=== PATIENT | male | born 1940 | race Caucasian/White ===

== ENCOUNTER 2019-06-18 19:46 | Inpatient (IN) | payer MEDICARE ==
[2019-06-18 20:40] LABS: #Basophils 0.1 thou/uL (0.0-0.2); #Eosinphils 0.1 thou/uL (0.0-0.7); #Monocytes 0.7 thou/uL (0.11-0.59); #Neutrophils 5.7 thou/uL (1.40-6.50); %Basophils 0.7 % (0.0-1.0); %Eosinophils 1.5 % (0.0-10.0); %Lymphocytes 23.7 % (21.0-51.0); %Monocytes 8.2 % (0.0-10.0); %Neutrophils 65.9 % (42.0-75.0); Hemoglobin 8.5 g/dL (14.0-18.0); Mean Corpuscular HGB CONC 33.2 g/dL (32.0-36.0); Mean Corpuscular Hemoglobin 29.2 pg (27.0-31.0); Mean Corpuscular Volume 88.1 fL (78.0-98.0); Mean Platelet Volume 8.3 fL (7.4-10.4); Platelet Count 218 thou/uL (130-400); RBC Distribution Width 14.2 % (11.5-14.5); Red Blood Cell (RBC) Count 2.89 mill/uL (4.70-6.10); White Blood Cell (WBC) Count 8.6 thou/uL (4.8-10.8)
[2019-06-18 21:00] LABS: ALT (SGPT) 17 U/L (8-55); AST (SGOT) 19 U/L (5-34); Albumin 3.6 g/dL (3.4-4.8); Alkaline Phosphatase 52 U/L (40-110); Anion Gap 12 mmol/L (10-20); BUN (Urea Nitrogen) 28 mg/dL (8.4-25.7); Bilirubin, Total 0.2 mg/dL (0.2-1.2); Calc. Creatinine Clearance 0 mL/min (70-130); Calcium 8.8 mg/dL (7.8-10.44); Carbon Dioxide 27 mmol/L (23-31); Chloride 103 mmol/L (98-107); Estimated GFR-MDRD 46; Globulin 2.6 g/dL (2.4-3.5); Glucose 116 mg/dL (83-110); Potassium 3.6 mmol/L (3.5-5.1); Protein, Total 6.2 g/dL (5.8-8.1); Sodium 138 mmol/L (136-145)
[2019-06-19] MEDS ORDERED: Ondansetron PF 4 MG/2 ML Vial IVP PRN ×2 (02:46→08:02)
[2019-06-19] MEDS ORDERED: Ondansetron ODT 4 MG TAB SL PRN (02:46)
[2019-06-19 02:51] VITALS: BMI 24.9
--- NOTE | 2019-06-19 08:01 | CT ---
PRELIMINARY REPORT/[facility]/EMERGENCY AFTER HOURS PROCEDURE EXAM: CT Abdomen and Pelvis with Intravenous Contrast CLINICAL HISTORY: MTony presents to the ED with c/o bloody stools, describes as dark x 3 days. Pt repor ts intermittent lightheadedness and feeling "unsteady on his feet." Pt denies abdominal pain. Pt repo rts nausea but denies vomiting and diarrhea. Pt reports she has been taking 650 mg Tylenol for arthri tis pain. Pt reports that he has had colonoscopy in the past but denies hx of diverticula disease. Pt reports hx of TIA but denies hx of TN or stents. Pt reports he drinks two whiskey and cokes every ni ght. Surgical history of prostatectomy. TECHNIQUE: Axial computed tomography images of the abdomen and pelvis with intravenous contrast. Cor onal and sagittal reformatted images are provided. Exam DLP is 670.9. CONTRAST: With; 70ML ISOVUE 370 intravenous. COMPARISON: None provided. FINDINGS: LUNG BASES: No basilar airspace consolidation or pleural effusion. LIVER: Unremarkable. GALLBLADDER AND BILE DUCTS: Unremarkable. No calcified stone. No ductal dilation. PANCREAS: Unremarkable. SPLEEN: Unremarkable. ADRENAL GLANDS: Unremarkable. KIDNEYS, URETERS, AND BLADDER: Unremarkable. No hydronephrosis or nephrolithiasis. No ureteral or luis dder calculi. STOMACH AND BOWEL: No obstruction. No wall thickening. No CT evidence of colitis or acute diverticuli tis. APPENDIX: No CT evidence for appendicitis. PERITONEUM: No intra-abdominal free air, free fluid or abscess. LYMPH NODES: No lymphadenopathy. REPRODUCTIVE: Status post prostatectomy. No pelvic mass or free fluid. VASCULATURE: Atherosclerosis of the aorta without aneurysm. BONES: No acute fractures or worrisome osseous lesions. Multilevel degenerative changes of the spine sacral iliac joints. ABDOMINAL WALL AND SOFT TISSUES: Unremarkable. IMPRESSION: No acute intra-abdominal or pelvic abnormality. ELECTRONICALLY SIGNED BY: Chu Muller M.D. Jun 19, 2019 1:12:15 AM REAL ESTATE CLOSING COORDINATOR FINAL REPORT EMERGENT AFTER HOURS CT ABDOMEN AND PELVIS WITH CONTRAST: FINDINGS/IMPRESSION: I agree with the findings and impression given in the preliminary report per [facility] physici an. No evidence of acute intraabdominal/pelvic abnormality.
[2019-06-19] MEDS ORDERED: Acetaminophen 325 MG TAB PO PRN (08:02)
[2019-06-19] MEDS ORDERED: Ondansetron ODT 4 MG TAB PO PRN (08:02)
[2019-06-19] MEDS ORDERED: hydrALAZINE 20 MG/ML VIAL SLOW IVP PRN (08:02)
[2019-06-19] MEDS: Sodium Chloride 0.9% 1,000 ML IV SCH ×2 (08:42→20:26)
[2019-06-19] MEDS: Pantoprazole 40 MG VIAL IVP SCH ×2 (08:45→20:26)
--- NOTE | 2019-06-19 08:45 | HP ---
PRIMARY CARE PHYSICIAN: Theo Preston MD CHIEF COMPLAINT: Dark stools and feeling dizzy. HISTORY OF PRESENT ILLNESS: Mr. Lane is a pleasant 78-year-old gentleman, who has a history of hypertension and previous transient ischemic attack. He says that about 3 days ago, he started noticing dark black-colored stools. He says he has never had anything like this before. He denied having any abdominal pain, but says that he typically has some reflux-like symptoms off and on that he never really paid much attention to. He says that he noticed that these symptoms actually worsened and last night it got fairly bad and he also noticed that he was feeling lightheaded and dizzy and that when he tried to walk, he felt off balance like he might fall. He also noted feeling tired lately when he tried to just walk in the house and noticed some shortness of breath at all. He was also feeling nauseated, but attributed this to decreased appetite because he had not eaten much in the last few days. He denies any vomiting, however, no hematemesis. He has been on aspirin as well as Aggrenox for several years for a previous TIA. Otherwise, he denies any chest pain. No dyspnea at rest and no other GI symptoms. REVIEW OF SYSTEMS: All systems were reviewed and are negative except for that mentioned in the history of present illness. PAST MEDICAL HISTORY: Significant for transient ischemic attack, hyperlipidemia, hypertension, and prostate cancer. PAST SURGICAL HISTORY: He has had both of his knees replaced, right shoulder surgery, and prostatectomy. ALLERGIES: NO KNOWN DRUG ALLERGIES. SOCIAL HISTORY: He is for 40 years. He is a nonsmoker. He drinks, he says at least 2 to 3 shots of whiskey at night to help him to sleep. He is a full code. His brother, Josephine, or his son, Estrella, can be his surrogate decision makers. FAMILY HISTORY: Significant for diabetes mellitus, he says in most of the females in his family and his father also had diabetes. CURRENT MEDICATIONS: Include Lipitor 10 mg daily as well as dipyridamole, aspirin, or Aggrenox extended release once a day. PHYSICAL EXAMINATION: GENERAL: He is alert and oriented. He appears to be in no acute distress. He is well developed and well nourished. VITAL SIGNS: Blood pressure was 128/59, heart rate 82, respiratory rate of 16, and temperature is 98.1. HEENT: Pupils are equal, round, and reactive. Extraocular muscles are intact. His sclerae are anicteric. Throat; no erythema, no exudates. NECK: No adenopathy. No bruits. LUNGS: Clear to auscultation. No wheezing. No rales. No rhonchi. CARDIOVASCULAR: He has normal S1 and S2. There is no S3 or S4. No murmurs, clicks, or rubs. ABDOMEN: Obese. It is soft. Tympanic to percussion. There is no rebound. No guarding. No organomegaly. EXTREMITIES: There is no clubbing or cyanosis. No edema. No calf tenderness. No joint effusions. NEUROLOGIC: His cranial nerves 2 through 12 are intact. Muscle strength is 5/5 in both his upper and lower extremities. SKIN AND INTEGUMENT: No significant skin changes. No rash. LABORATORY RESULTS: White blood cell count is 8.6, hemoglobin 8.5, hematocrit is 25.5, and platelet count is 218. Sodium 138, potassium 3.6, chloride is 103, CO2 is 27, BUN of 28, creatinine 1.49, and glucose is 116. Liver function tests are normal. IMAGING DATA: He had a CT scan of the abdomen and pelvis, the preliminary read is negative for any acute problems. ASSESSMENT AND PLAN: 1. This is a pleasant 78-year-old gentleman, who has noted dark stools. He also has a normocytic anemia. He has been symptomatic and he says it is relatively recent with his symptoms. For this reason, he will be admitted for symptomatic anemia. We will consult GI, place him on IV Protonix and leave him n.p.o. for now. 2. For hypertension, since he will be n.p.o., we will place him on p.r.n. medications for blood pressure. We may go ahead and allow some medications with sips of water and we will be holding his aspirin and dipyridamole combination. Job ID: [id number]
[2019-06-19] MEDS ORDERED: Lidocaine 1% PF 5 ML VIAL ONE (10:15)
[2019-06-19] MEDS ORDERED: PROPOFOL 200 MG/20 ML VIAL ONE (10:15)
[2019-06-19 11:21] LABS: Iron 38 ug/dL (65-175); Iron Binding Capacity, Total 255 mcg/dL (261-462)
[2019-06-19] MEDS ORDERED: Ketamine 50 MG/ML (10ML VIAL) ONE (15:53)
--- NOTE | 2019-06-19 16:56 | CON ---
DATE OF CONSULTATION: 06/19/2019 REASON FOR CONSULTATION: History of black tarry stool over the last 3 days, anemia due to blood loss. HISTORY OF PRESENT ILLNESS: Mr. Isabel Lane is a very pleasant 78-year-old male with history of hyperlipidemia, hypertension, and past history of TIA. Over the years, he has had taken aspirin and also Aggrenox. The patient has had mild acid reflux off and on and he had never medication. The patient noted black tarry stools 3 days ago. This was black and tarry. He has had black tarry stool over the last several days. He started feeling dizzy when he stood up and also was feeling mild dyspnea when he was walking. He came to the ER and had a CBC done. He was found to have anemia. Hemoglobin is down to 8.5. The patient has had no stool tonight and had no stool today. The patient denied abdominal pain, nausea, or vomiting. Did feel mildly nauseous every now and then, but did not throw up. He had no similar episodes in the past. The patient has no prior history of any peptic ulcer. He has no relevant history. ALLERGIES: NO ALLERGIES. SOCIAL HISTORY: The patient is a nonsmoker. He does drink alcohol, 2 to 3 shots of whiskey every night. No history of drug use. MEDICAL ILLNESSES: 1. TIA many years ago. 2. Hyperlipidemia. 3. Hypertension. 4. Prostate cancer, status post prostatectomy. 5. No history of any diabetes. No history of any heart disease or lung disease. SURGERIES: 1. He has had bilateral knee replacement. 2. Right shoulder surgery. 3. Prostatectomy in 1996 for prostate cancer and has had no recurrence since that time. FAMILY HISTORY: Diabetes mellitus and no family history of any cancer. MEDICATIONS: Include; 1. Lipitor. 2. Aggrenox, aspirin . REVIEW OF SYSTEMS: Ten-point system reviewed. CONSTITUTIONAL: No history of any weight loss. No night sweats. His exercise tolerance is pretty good until recently. HEAD: No chronic headache. No dizziness. EYES: No diplopia. No impaired vision. EARS: No pain or discharge. NOSE: No nose bleed. THROAT: No sore throat or coughing. LUNGS: No chronic coughing. No hemoptysis. No dyspnea. CARDIOVASCULAR SYSTEM: No chest pain. No palpitation. Did have mild dyspnea with exertion recently. No orthopnea. No PND. ABDOMEN: No abdominal pain. No nausea, no vomiting. He has history of black tarry stool. GENITOURINARY: No dysuria or any frequency of urination. Musculoskeletal, neuroendocrine, hematological, neuropsychiatry are unremarkable. PHYSICAL EXAMINATION: GENERAL: He appears very comfortable. He is a very pleasant elderly black male, appears comfortable, in no acute distress. He is awake, alert, oriented to time, place, and person. VITAL SIGNS: Afebrile. Pulse is 79, blood pressure 137/71. HEENT: Conjunctivae are clear. NECK: Supple. No adenitis or thyromegaly noted. CARDIOVASCULAR SYSTEM: First and second heart sounds are normal. LUNGS: Clear to auscultation. ABDOMEN: Soft. Abdomen is nontender. No organomegaly. No masses. Bowel sounds normal. EXTREMITIES: Reveal no edema. LABORATORY DATA: Shows mild anemia. CBC; WBC 8600, hemoglobin 8.5, hematocrit 25.5, MCV 88.1, platelet count is 218,000, polymorphs 65, lymphocytes 23. His chemistry panel, Chem-7 is normal except BUN of 28, creatinine is 1.49, glucose 116, calcium 8.8. Bilirubin 0.2, AST 19, ALT 17, alkaline phosphatase 52, albumin is 3.6. CLINICAL IMPRESSION: 1. A 78-year-old male with history of black tarry stool over the last 3 days. He has no abdominal pain. No nausea or vomiting. He did feels mildly dizzy when he stood up and also has mild dyspnea with exertion. He has no chest pain. He had a colonoscopy I believe 2 or 3 years ago and was told to be negative. Based on the history, I believe he has most likely upper GI bleeding, possibly peptic ulcer. 2. Anemia due to blood loss. 3. Hypertension. 4. Hyperlipidemia. 5. Prostate cancer, status post prostatectomy more than 20 years ago. 6. Chronic kidney disease with elevated BUN of 28 and creatinine 1.49. The elevation of BUN may be related to GI bleeding. RECOMMENDATION: 1. N.p.o. 2. IV PPI. 3. EGD later on today and I will make further recommendations. Job ID: [id number]
--- NOTE | 2019-06-19 22:22 | OP ---
DATE OF PROCEDURE: 06/19/2019 OPERATIVE PROCEDURE: Esophagogastroduodenoscopy with biopsy. PREOPERATIVE DIAGNOSES: 1. Anemia. 2. History of dark stools. POSTOPERATIVE DIAGNOSES: 1. Hiatal hernia. 2. Distal esophageal ulceration measuring approximately 1.5 cm, nonbleeding. 3. Linear erosion over the distal esophagus. 4. Gastric ulcer measuring approximately 1 cm on the gastric body, nonbleeding. 5. Antral gastritis. 6. 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 The descending duodenum could not be visualized. DESCRIPTION OF PROCEDURE: The patient was placed on his left lateral position and was given sedation by Anesthesia Department. A Pentax video gastroscope under direct vision passed down the oropharynx, past the GE junction into the stomach and subsequently into the descending duodenum. The upper 2/3rds of the esophageal mucosa appeared normal. He had a long bleeding erosion over the distal esophagus. He also had a large ulceration at the GE junction and distal esophagus. Otherwise, distal mucosa appeared normal. He had a hiatal hernia. Retroflexion failed to show any pathology in fundus or cardia. In the gastric body, the patient was found to have ulceration measuring 1 cm. It also appears chronic. They are nonbleeding. The gastric antrum shows gastritis. The duodenal bulb, no pathology. The postbulbar area of the duodenum showed ulceration with a stricture. I could not traverse the strictured area into descending duodenum. At the time of endoscopy, no bleeding seen. Biopsy obtained from gastric antrum. RECOMMENDATIONS: 1. Start the patient on Protonix 40 once a day. 2. Iron supplement. 3. Regular diet. 4. If he does well, consider discharge home tomorrow and he will probably come back in a couple of months for repeat EGD. Job ID: [id number]
[2019-06-20 06:32] LABS: #Eosinphils 0.2 thou/uL (0.0-0.7); #Lymphocytes 2.1 thou/uL (1.20-3.40); #Monocytes 0.7 thou/uL (0.11-0.59); #Neutrophils 4.5 thou/uL (1.40-6.50); %Basophils 0.1 % (0.0-1.0); %Eosinophils 3.1 % (0.0-10.0); %Lymphocytes 27.6 % (21.0-51.0); %Monocytes 9.3 % (0.0-10.0); Hemoglobin 7.7 g/dL (14.0-18.0); Mean Corpuscular HGB CONC 33.1 g/dL (32.0-36.0); Mean Corpuscular Hemoglobin 29.4 pg (27.0-31.0); Mean Corpuscular Volume 88.9 fL (78.0-98.0); Mean Platelet Volume 8.1 fL (7.4-10.4); Platelet Count 208 thou/uL (130-400); RBC Distribution Width 14.9 % (11.5-14.5); Red Blood Cell (RBC) Count 2.63 mill/uL (4.70-6.10); White Blood Cell (WBC) Count 7.6 thou/uL (4.8-10.8)
[2019-06-20 06:52] LABS: Anion Gap 10 mmol/L (10-20); BUN (Urea Nitrogen) 14 mg/dL (8.4-25.7); Calc. Creatinine Clearance 71 mL/min (70-130); Calcium 7.7 mg/dL (7.8-10.44); Carbon Dioxide 26 mmol/L (23-31); Chloride 111 mmol/L (98-107); Estimated GFR-MDRD 67; Glucose 93 mg/dL (83-110); Potassium 3.9 mmol/L (3.5-5.1); Sodium 143 mmol/L (136-145)
[2019-06-20] MEDS: Pantoprazole 40 MG VIAL IVP SCH (08:22)
--- NOTE | 2019-06-20 11:50 | PRG ---
DATE OF SERVICE: 06/20/2019 SUBJECTIVE: This 78-year-old male, hospitalized for anemia and history of dark stool. He underwent EGD and was found to have esophagitis, gastric ulcer, and also ulcer in the postbulbar area of the duodenum. No active bleeding seen. He is on pantoprazole. Tolerating diet. His stool is dark. OBJECTIVE: GENERAL: Appears comfortable. VITAL SIGNS: Pulse is 67 and blood pressure is 131/76. CARDIOVASCULAR: Within normal limits. LUNGS: Within normal limits. ABDOMEN: Soft. No organomegaly. No tenderness. No masses. LABORATORY DATA: Shows mild drop in blood count to 7.7 from 8.5. Hematocrit 23.4. CLINICAL IMPRESSION: 1. Anemia due to blood loss. 2. Gastric ulcer, ulcer in the duodenum and also esophageal ulcer. 3. Previous cerebrovascular accident, on aspirin and Aggrenox. RECOMMENDATIONS: 1. Iron supplement. 2. Pantoprazole 40 once a day. 3. May consider discharge home and we will follow up as an outpatient. Job ID: [id number]
[2019-06-20 12:40] VITALS: TEMP 98
[2019-06-20 13:06] LABS: Hemoglobin 8.1 g/dL (14.0-18.0); Platelet Count 224 thou/uL (130-400)
--- NOTE | 2019-06-20 14:35 | PDOC.HOSPP ---
- Subjective Encounter Date: 06/20/19 Encounter Time: 14:33 Subjective: Mr. Lane was seen today in follow-up of GI- Bleed. He does not have any complaints today. - Objective Vital Signs & Weight: Vital Signs (12 hours) Temp Pulse Resp BP Pulse Ox 06/20/19 11:36 98 F 75 18 124/63 100 06/20/19 09:08 67 06/20/19 08:22 99 06/20/19 07:34 98.3 F 16 L 16 131/76 99 06/20/19 04:26 97.9 F 68 18 131/72 97 Weight Weight 189 lb I&O: 06/19/19 06/20/19 06/21/19 06:59 06:59 06:59 Intake Total 10 1640 Balance 10 1640 Result Diagrams: 06/20/19 12:52 06/20/19 06:16 Hospitalist ROS - Medication Medications: Active Medications Generic Name Dose Route Start Last Admin Trade Name Freq PRN Reason Stop Dose Admin Pantoprazole Sodium 40 mg 06/19/19 09:00 06/20/19 08:22 Protonix IVP 40 mg Q12HR ELSA Administration - Exam Eye: PERRL Heart: RRR, no murmur, no gallops, no rubs Respiratory: CTAB, no wheezes, no rales, no ronchi, normal chest expansion, no tachypnea, normal percussion Gastrointestinal: soft, non-tender, non-distended, normal bowel sounds, no palpable masses, no hepatomegaly Extremities: no cyanosis, no clubbing, no edema Hosp A/P (1) Hypertension Code(s): I10 - ESSENTIAL (PRIMARY) HYPERTENSION Status: Acute (2) TIA (transient ischemic attack) Code(s): G45.9 - TRANSIENT CEREBRAL ISCHEMIC ATTACK, UNSPECIFIED Status: Chronic (3) GI bleed Code(s): K92.2 - GASTROINTESTINAL HEMORRHAGE, UNSPECIFIED Status: Chronic (4) Acute blood loss anemia Code(s): D62 - ACUTE POSTHEMORRHAGIC ANEMIA Status: Acute - Plan * GI - bleed to to peptic ulcers- continue Protonix * Stable for discharge
[2019-06-20 14:43] VITALS: BP 136/64
--- NOTE | 2019-06-20 23:47 | DIS ---
DATE OF ADMISSION: 06/19/2019 DATE OF DISCHARGE: 06/20/2019 PRIMARY CARE PHYSICIAN: Theo Preston MD DISCHARGE DIAGNOSES: 1. Peptic ulcer disease. 2. Acute blood loss anemia. 3. History of transient ischemic attack. 4. Hypertension. 5. Hyperlipidemia. 6. Prostate cancer. DISCHARGE MEDICATIONS: Include; 1. Protonix 40 mg p.o. daily. 2. Aspirin 81 mg daily. 3. Aggrenox extended release 1 tablet daily. 4. Atorvastatin 10 mg at bedtime. 5. Iron sulfate 325 mg twice daily. PROCEDURES DONE DURING ADMISSION: The patient had an upper GI, which demonstrated an esophageal ulceration measuring 1.5 cm, which was nonbleeding. A linear erosion over the distal esophagus. A gastric ulcer measuring 1 cm, which was nonbleeding, antral gastritis, and an ulcer over the posterior bulbar area of the duodenum with a stricture, which was nonbleeding. CODE STATUS: Full code. ALLERGIES: NO KNOWN DRUG ALLERGIES. HOSPITAL COURSE: Mr. Lane is a pleasant 78-year-old gentleman, who presented to the emergency room complaining of generalized weakness and fatigue. He was found to be severely anemic with a hemoglobin of 8.5. He was admitted and evaluated by GI. He was found to have multiple peptic ulcers, one in the esophagus, one in the antrum, and one in the duodenum. These were nonbleeding and his H and H remained stable overnight. He was briefly taken off aspirin and Aggrenox. However, this will be reinstituted with the addition of Protonix. He will also be placed on iron supplementation to help rebuild his hemoglobin. He has been instructed to follow up with Dr. Cuellar as instructed to get the biopsy results and follow up from the EGD as well as his primary care physician in approximately 1 week. Job ID: [id number]
== END 2019-06-20 17:43 | disposition home or self-care (01) | DRG 812 ==
LOC: ERS 19:46 → SURG A 06-19 02:44
PROVIDERS: ADMIT Family Medicine; ATTEND Family Medicine
PROC: 0DB68ZX Excision of Stomach, Via Natural or Artificial Opening Endoscopic, Diagnostic (ICD-10-PCS; principal; 2019-06-19)
DX: D62 Acute posthemorrhagic anemia (principal); K29.70 Gastritis, unspecified, without bleeding; E78.5 Hyperlipidemia, unspecified; I12.9 Hypertensive chronic kidney disease with stage 1 through stage 4 chronic kidney disease, or unspecified chronic kidney disease; N18.9 Chronic kidney disease, unspecified; K44.9 Diaphragmatic hernia without obstruction or gangrene; Z96.653 Presence of artificial knee joint, bilateral; K27.9 Peptic ulcer, site unspecified, unspecified as acute or chronic, without hemorrhage or perforation; I25.2 Old myocardial infarction; Z86.73 Personal history of transient ischemic attack (TIA), and cerebral infarction without residual deficits; Z85.46 Personal history of malignant neoplasm of prostate
CPT/HCPCS: 36415; 74177; 80048; 80053; 82274; 82728; 83540; 83550; 85025; 86850; 86900; 86901; 88305; 88312; C9113; J2001; J2704

== ENCOUNTER 2023-08-18 22:09 | Inpatient (IN) | payer MEDICARE ==
[2023-08-18 23:05] LABS: #Basophils 0.1 thou/uL (0.0-0.2); #Eosinphils 0.2 thou/uL (0.0-0.7); #Monocytes 1.1 thou/uL (0.11-0.59); #Neutrophils 7.2 thou/uL (1.40-6.50); %Basophils 0.5 % (0.0-1.0); %Eosinophils 1.3 % (0.0-10.0); %Lymphocytes 23.3 % (21.0-51.0); %Monocytes 9.5 % (0.0-10.0); %Neutrophils 64.9 % (42.0-75.0); Hematocrit 45.5 % (42.0-52.0); Hemoglobin 14.7 g/dL (14.0-18.0); Mean Corpuscular HGB CONC 32.3 g/dL (32.0-36.0); Mean Corpuscular Hemoglobin 26.3 pg (27.0-31.0); Mean Corpuscular Volume 81.4 fl (78.0-98.0); Mean Platelet Volume 10.7 fL (7.4-10.4); Platelet Count 240 10x3/uL (130-400); RBC Distribution Width 14.2 % (11.5-14.5); Red Blood Cell (RBC) Count 5.59 mill/uL (4.70-6.10); White Blood Cell (WBC) Count 11.2 10x3/uL (4.8-10.8)
[2023-08-18] MEDS ORDERED: Aspirin Chewable 81 MG TAB ONE (23:19)
[2023-08-18 23:29] LABS: Troponin I Less than 0.010 ng/mL (< 0.028)
[2023-08-19 00:14] LABS: Bacteria/HPF None Seen HPF (None Seen); Bilirubin Negative (Negative); Blood, Urine Negative (Negative); CAUTI Indications for Culture Pelvic or flank pain; Clarity Clear (Clear); Glucose, Urine (Dipstick) Normal (Negative); Ketone, Urine Negative (Negative); Leukocyte Negative Leu/uL (Negative); Nitrite Negative (Negative); Protein, Urine (Dipstick) Negative (Neg-Trace); RBC/HPF 0-3 HPF (0-3); Specific Gravity, Urine 1.016 (1.002-1.036); Squamous Epithelial None Seen HPF (0-3); Urobilinogen Normal mg/dL (Less than 2); WBC/HPF 0-3 HPF (0-3); pH, Urine 5.5 (5.0-9.0)
[2023-08-19 00:26] LABS: Urine Culture Reflex No No
[2023-08-19 00:42] LABS: SARS-CoV-2 E Target Negative; SARS-CoV-2 N2 Target Negative; SARS-CoV-2 NAA Rapid Test Not Detected (NotDetected); SARS-CoV-2 RdRP gene Negative
[2023-08-19 01:15] LABS: ALT (SGPT) 14 U/L (8-55); AST (SGOT) 20 U/L (5-34); Albumin 4.2 g/dL (3.4-4.8); Alkaline Phosphatase 80 U/L (40-110); Anion Gap 18 mmol/L (10-20); BUN (Urea Nitrogen) 25 mg/dL (8.4-25.7); Calc. Creatinine Clearance 0 mL/min (70-130); Calcium 9.5 mg/dL (7.8-10.44); Carbon Dioxide 24 mmol/L (23-31); Chloride 102 mmol/L (98-107); Estimated GFR 50; Globulin 3.3 g/dL (2.4-3.5); Glucose 115 mg/dL (83-110); Magnesium 2.2 mg/dL (1.6-2.6); Potassium 3.8 mmol/L (3.5-5.1); Protein, Total 7.5 g/dL (5.8-8.1); Sodium 140 mmol/L (136-145)
[2023-08-19 01:22] LABS: Bilirubin, Total 0.3 mg/dL (0.2-1.2)
[2023-08-19] MEDS ORDERED: Ondansetron PF 4 MG/2 ML Vial IVP PRN (02:15)
[2023-08-19] MEDS ORDERED: Ondansetron ODT 4 MG TAB SL PRN (02:15)
[2023-08-19 02:53] VITALS: BMI 27.2
[2023-08-19 06:53] LABS: Cardiac Risk 2.9 (Less than 4.5)
[2023-08-19] MEDS ORDERED: Atorvastatin Calcium 10 MG TAB ONE (08:45)
[2023-08-19] MEDS ORDERED: Pantoprazole 40 MG VIAL ONE (08:45)
[2023-08-19] MEDS ORDERED: Famotidine/PF 20 mg/2ml Vial ONE (08:46)
[2023-08-19] MEDS ORDERED: Aspirin-Dipyridamole 200-25mg CAP PO SCH ×2 (09:00)
[2023-08-19] MEDS ORDERED: Aspirin 325 MG TAB PO SCH (09:00)
[2023-08-19] MEDS: Famotidine/PF 20 mg/2ml Vial SLOW IVP SCH (09:22)
[2023-08-19] MEDS: Atorvastatin Calcium 10 MG TAB PO SCH (09:22)
[2023-08-19] MEDS ORDERED: Aspirin 81 mg Enteric Coated Tablet ONE (09:53)
[2023-08-19] MEDS: Aspirin 81 mg Enteric Coated Tablet PO SCH (10:06)
[2023-08-20 05:44] LABS: #Basophils 0.1 thou/uL (0.0-0.2); #Eosinphils 0.2 thou/uL (0.0-0.7); #Monocytes 0.8 thou/uL (0.11-0.59); #Neutrophils 5.6 thou/uL (1.40-6.50); %Basophils 0.8 % (0.0-1.0); %Eosinophils 2.5 % (0.0-10.0); %Lymphocytes 26.7 % (21.0-51.0); %Monocytes 8.5 % (0.0-10.0); %Neutrophils 61.2 % (42.0-75.0); Hematocrit 43.5 % (42.0-52.0); Mean Corpuscular HGB CONC 32.2 g/dL (32.0-36.0); Mean Corpuscular Hemoglobin 26.9 pg (27.0-31.0); Mean Corpuscular Volume 83.5 fl (78.0-98.0); Platelet Count 234 10x3/uL (130-400); RBC Distribution Width 14.3 % (11.5-14.5); Red Blood Cell (RBC) Count 5.21 mill/uL (4.70-6.10); White Blood Cell (WBC) Count 9.1 10x3/uL (4.8-10.8)
[2023-08-20 06:07] LABS: Anion Gap 12 mmol/L (10-20); BUN (Urea Nitrogen) 20 mg/dL (8.4-25.7); Calc. Creatinine Clearance 63 mL/min (70-130); Calcium 9.1 mg/dL (7.8-10.44); Carbon Dioxide 24 mmol/L (23-31); Chloride 104 mmol/L (98-107); Estimated GFR 65; Glucose 105 mg/dL (83-110); Potassium 3.6 mmol/L (3.5-5.1); Sodium 136 mmol/L (136-145)
[2023-08-20] MEDS: Aspirin 81 mg Enteric Coated Tablet PO SCH (10:16)
[2023-08-20 15:41] VITALS: BP 162/79; TEMP 97.7
[2023-08-20] MEDS: Ondansetron ODT 4 MG TAB PO PRN (16:12)
[2023-08-20] MEDS: Acetaminophen 325 MG TAB PO PRN (16:12)
== END 2023-08-20 19:25 | disposition home or self-care (01) | DRG 66 ==
LOC: ERS 22:09 → ERHOLD 08-19 01:56 → 2SE 08-19 12:02 → OBSVTOIN 08-19 13:06
PROVIDERS: ADMIT Hospitalist; ATTEND Physician Assistant
DX: I63.81 Other cerebral infarction due to occlusion or stenosis of small artery (principal); I10 Essential (primary) hypertension; E78.5 Hyperlipidemia, unspecified; Z79.82 Long term (current) use of aspirin; Z79.899 Other long term (current) drug therapy; G83.24 Monoplegia of upper limb affecting left nondominant side; R47.1 Dysarthria and anarthria; Z98.890 Other specified postprocedural states; Z83.3 Family history of diabetes mellitus
CPT/HCPCS: 36415; 36416; 70450; 70551; 71045; 80048; 80053; 80061; 81001; 83690; 83735; 83880; 84484; 85025; 93005; 93306; 93880; 96374; C9113; G0378; Q0162; S0028; U0002